=== PATIENT | male | born 1970 | race Caucasian/White ===

== ENCOUNTER 2016-09-02 11:04 | Emergency (ER) | payer OTHER ==
[~2016-09-02] VITALS: Ht 177.8 cm; Wt 113.0 kg
[~2016-09-02 11:04] MED LIST: TRIAM.1%T EX; Z.0.NO CURRENT MEDS; ZYRT10TA12 PO
[2016-09-02 11:17] VITALS: BP 154/106; PULSE 101; RESP 16; TEMP 98.6; O2SAT 98
--- NOTE | 2016-09-02 11:38 | PD ---
HPI Chief Complaint: Abdominal Pain Time Seen by Provider: 11:21 Travel History International Travel<30 days: No Contact w/Intl Traveler<30days: No Traveled to known affect area: No History of Present Illness HPI This 46-year-old male has noted a lump in his midabdomen. The size of the knot seems to vary at times. He has not had any vomiting. There is no history of trauma. PFSH Past Medical History Blood Disorders: No Cancer: No Cardiovascular Problems: No COPD: Yes Diminished Hearing: No Endocrine: No Gastrointestinal Disorders: No Genitourinary: No Implanted Vascular Access Dvce: No Musculoskeletal: Yes (BACK SURGERY) Neurologic: No Psychiatric: No Reproductive: No Respiratory: No Influenza Vaccination: No Past Surgical History Other Surgery: Yes Social History Alcohol Use: Yes Tobacco Use: Yes (07/17 PPD) Substance Use: No Allergies-Medications (Allergen,Severity, Reaction): Coded Allergies: No Known Allergies (Verified , 09/02/16) Reported Meds & Prescriptions Reported Meds & Active Scripts Active Review of Systems General / Constitutional: No: Fever, Chills Eyes: No: Diploplia HENT: No: Headaches Cardiovascular: No: Chest Pain or Discomfort, Palpitations Respiratory: No: Cough Gastrointestinal: No: Loss of Appetite Genitourinary: No: Flank Pain Musculoskeletal: No: Myalgias, Arthralgias Skin: No Rash Neurologic: No: Weakness, Dizziness Hematologic/Lymphatic: No: Easy Bruising Physical Exam Narrative GENERAL: Well-developed male SKIN: Warm and dry. HEAD: Atraumatic. Normocephalic. EYES: Pupils equal and round. No scleral icterus. No injection or drainage. ENT: No nasal bleeding or discharge. Mucous membranes pink and moist. NECK: Trachea midline. No JVD. CARDIOVASCULAR: Regular rate and rhythm. No murmur appreciated. RESPIRATORY: No accessory muscle use. Clear to auscultation. Breath sounds equal bilaterally. GASTROINTESTINAL: Abdomen soft, non-tender, nondistended. Hepatic and splenic margins not palpable. There is a not palpable just above the umbilicus when the patient stands. It is not palpable when he lays back. This is consistent with a ventral umbilical hernia MUSCULOSKELETAL: No obvious deformities. No clubbing. No cyanosis. No edema. NEUROLOGICAL: Awake and alert. No obvious cranial nerve deficits. Motor grossly within normal limits. Normal speech. PSYCHIATRIC: Appropriate mood and affect; insight and judgment normal. Data Data Last Documented VS Vital Signs Date Time Temp Pulse Resp B/P Pulse Ox O2 Delivery O2 Flow Rate FiO2 09/02/16 11:17 98.6 101 16 154/106 98 [facility] Medical Decision Making Medical Screen Exam Complete: Yes Emergency Medical Condition: Yes Medical Record Reviewed: Yes Differential Diagnosis Differential includes umbilical hernia, ventral hernia, Narrative Course Certainly is not incarcerated. When he lays back and disappears completely. He is stable for outpatient treatment he'll be referred to general surgery Diagnosis Primary Impression: Hernia, umbilical Qualified Code: K42.9 - Umbilical hernia without obstruction and without gangrene Referrals: Surjit Hoover MD Additional Instructions: call surgeon for follow up Disposition: 01 DISCHARGE HOME Condition: Stable Laith Salter MD Sep 02, 2016 11:38
== END 2016-09-02 11:50 | disposition home or self-care (01) ==
LOC: PHED 11:04
DX: K42.9 Umbilical hernia without obstruction or gangrene (principal); J44.9 Chronic obstructive pulmonary disease, unspecified; F17.210 Nicotine dependence, cigarettes, uncomplicated
CPT/HCPCS: 99282